=== PATIENT | female | born 1995 | race Asian ===

== ENCOUNTER 2025-11-07 05:44 | Inpatient (IN) ==
--- NOTE | 2025-10-24 16:07 | Anesthesiology Consultation ---
Date of Service October 24, 2025 Assessment & Plan (1) Encounter for pre-operative examination: Chart Review Chart Review: entry level chemist initiated -Infectious Disease screening: Per PAT nursing assessment on 10/24/25. No known infectious disease contacts in past 10 days or current infectious disease symptoms. No recent travel outside the country. History Surgery Operation Date: 11/07/25 07:30 Proposed Procedures p Section in LD (Delivery of baby through abdominal inision) - Sommer Alfaro MD, FACOG Height/Weight Height: 5 ft 2 in Weight: 62.596 kg Allergies Allergy/AdvReac Type Severity Reaction Status Date / Time No Known Drug Allergies Allergy Unknown Unknown Verified 10/24/25 15:40 Medications Home Medications Medication Instructions Recorded Confirmed Last Taken breast pump #1 ea 06/26/25 10/22/25 Unknown L.acidophilus,rhamnosus-B.breve-S.thermophilus 1 tab PO DAILY 10/24/25 10/24/25 Unknown 3 billion cell chew tab vit with calcium-iron 1 tab PO DAILY 10/24/25 10/24/25 Unknown fum-folic acid 60 mg-0.8 mg tablet Past Medical History Medical History (Updated 10/24/25 @ 16:06 by Joanne Storey PA-C) Breech presentation Eustachian tube dysfunction chronic left side Failed external cephalic version Hypotension states diastolic 50's systolically usually in upper 100-110s Nausea and vomiting during states mostly nausea Varicella vaccination Past Family History Family History Denies family history of Ovarian cancer Breast cancer Colorectal cancer Past Surgical History Surgical History History of insertion of intraocular lens into anterior chamber (2017) b/l History of wisdom tooth extraction (2020) Social History Smoking Status: Never smoker Do You Dip or Chew Tobacco: No Hx Alcohol Use: No Hx Substance Use: No substance use type: does not use Lab Results Anesthesia Preop Results Results Anesthesia Widget: WBC 6.29 K/ul (4.8-10.8) 10/23/25 Hgb 13.0 g/dL (12.0-16.0) 10/23/25 Hct 37.2 % (37.0-47.0) 10/23/25 Plt 144 K/uL (130-400) 10/23/25 Blood Type AB Positive 10/23/25 Antibody Screen NEGATIVE 10/23/25
--- NOTE | 2025-11-05 15:33 | History & Physical Report ---
Date of Service November 05, 2025 Assessment & Plan (1) 39 weeks gestation of : (2) Breech presentation: Plan Admit on day of surgery for planned c/s due to breech presentation. Failed ecv. Procedure reviewed in detail and consent reviewed and signed. Preop and postop instructions and course reviewed. History of Present Illness Chief Complaint: planned c/s Primary Care Provider: Ute Grover MD 29yo at 39+wks on day of admission for planned c/s for persistent breech presentation. No rom, no vb. +FM. No ctx. PNC c/b 1. breech, failed ecv 2. needs MMR pp PNL rhpos, ri, gbs neg OBH: g1 GYNH: no stds. Allergies Allergy/AdvReac Type Severity Reaction Status Date / Time No Known Drug Allergies Allergy Unknown Unknown Verified 10/30/25 10:27 Home Medications Medication Instructions Recorded Confirmed Type breast pump #1 ea 06/26/25 10/30/25 Rx L.acidophilus,rhamnosus-B.breve-S.thermophilus 1 tab PO DAILY 10/24/25 10/30/25 History 3 billion cell chew tab vit with calcium-iron 1 tab PO DAILY 10/24/25 10/30/25 History fum-folic acid 60 mg-0.8 mg tablet Patient History Medical History (Updated 11/05/25 @ 15:32 by Sommer Alfaro MD, FACOG) Eustachian tube dysfunction chronic left side Hypotension states diastolic 50's systolically usually in upper 100-110s Nausea and vomiting during states mostly nausea Breech presentation Failed external cephalic version Varicella vaccination Surgical History History of wisdom tooth extraction (2020) History of insertion of intraocular lens into anterior chamber (2017) b/l Family History Denies family history of Ovarian cancer Breast cancer Colorectal cancer Social History Smoking Status: Never smoker Second Hand Exposure: No; Do You Dip or Chew Tobacco: No; Hx Alcohol Use: No Hx Substance Use: No Preferred Language: Serbian Communication Ability: Effective Machinist Mate Required: No Beliefs That Will Affect Care: Jehovah'S Witness Jehovah'S Witness Beliefs: quaker marital status: marital status details: Eric Soriano (39) [phone] Current Living Situation: Spouse Current Living Situation Comment: lives with spouse, no pets current occupational status: employed 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
[2025-11-07] MEDS: LACTATED RINGER'S 1,000 ML IV SCH (06:25)
[2025-11-07] MEDS ORDERED: LACTATED RINGER'S 1,000 ML IV SCH ×2 (06:45→08:54)
[2025-11-07] MEDS: ACETAMINOPHEN 500 MG TAB PO SCH (07:11)
[2025-11-07] MEDS ORDERED: ONDANSETRON INJ 2 MG/ML 2 ML VIAL IV PRN (07:20)
[2025-11-07] MEDS ORDERED: NALBUPHINE HCL INJ 10 MG/ML AMP IV PRN (07:20)
[2025-11-07] MEDS ORDERED: PROMETHAZINE 6.25 MG/50.25 ML BAG IV PRN (07:20)
[2025-11-07] MEDS ORDERED: MoRPHine SULFATE PF 1 MG/ML 10 ML AMP/VIAL INT SPINAL ONE (07:20)
[2025-11-07] MEDS ORDERED: MEPERIDINE HCL 25 MG/ML CARP/VIAL IV PRN (07:20)
[2025-11-07] MEDS ORDERED: HYDROmorphone INJ 0.5 MG/0.5 ML SYR IV PRN (07:20)
[2025-11-07] MEDS ORDERED: NALOXONE HCL 1 MG in SODIUM CHLORIDE 0.9% 1,000 ML IV PRN (07:20)
[2025-11-07] MEDS ORDERED: NALOXONE HCL 0.4 MG/1 ML VIAL/CARP IV PRN (07:20)
[2025-11-07] MEDS ORDERED: diphenhydrAMINE 50 MG/ML VIAL IV PRN (07:20)
[2025-11-07] MEDS ORDERED: MoRPHine SULFATE 2 MG/ML CARP IV PRN (07:20)
[2025-11-07] MEDS ORDERED: NALOXONE HCL 0.08 MG in SYRINGE 1.8 ML IV PRN (07:20)
[2025-11-07] MEDS ORDERED: ONDANSETRON INJ 2 MG/ML 2 ML VIAL ONE (07:25)
[2025-11-07] MEDS ORDERED: PHENYLEPHRINE HCL 25 MG/250 ML NSS IV ONE (07:25)
[2025-11-07] MEDS ORDERED: OXYTOCIN 10 UNITS/ML VIAL ONE (07:25)
[2025-11-07] MEDS ORDERED: MoRPHine SULFATE PF 1 MG/ML 10 ML AMP/VIAL ONE (07:27)
[2025-11-07] MEDS: CITRIC ACID/SODIUM CITRATE 15 ML UDC PO SCH (07:29)
[2025-11-07] MEDS ORDERED: SODIUM CHLORIDE 0.9% 1,000 ML IV SCH (07:30)
[2025-11-07] MEDS ORDERED: NO NARCOTICS OR SEDATIVES SCH (07:30)
[2025-11-07] MEDS ORDERED: DC INTRASPINAL MORPHINE SCH (07:30)
--- NOTE | 2025-11-07 07:30 | History & Physical Bridge Note ---
Date of Service November 07, 2025 History & Physical Bridge Note I have examined the patient, reviewed the History & Physical and in the interval since the performance of the History & Physical I have noted the following changes of clinical significance: no changes noted
[2025-11-07 07:33] LABS: Hematocrit (blood only) 32.9 % (37.0-47.0); Hemoglobin 11.5 g/dL (12.0-16.0); Immature Granulocytes # (auto) 0.02 K/uL (0.01-0.20); Immature Granulocytes % (auto) 0.3 %; Mean Corpuscular Hemoglobin 33.9 pg (25.0-34.0); Mean Corpuscular Volume 97.1 fL (80.0-100.0); Platelet Count 117 K/uL (130-400); RDW Standard Deviation 42.4 fL (36.4-46.3); Red Blood Count 3.39 M/uL (4.20-5.40); White Blood Count 5.74 K/ul (4.8-10.8)
--- NOTE | 2025-11-07 08:32 | Operative Report ---
PG Post Operative Report Pre & Post Diagnosis Operation Date: 11/07/25 07:30 <No data on this case meets the specified criteria> 1. 39 week iup 2. Breech presentation 3. Failed ECV I identified the patient and participated in the time-out.: Yes Procedure Operation Date: 11/07/25 07:30 <No data on this case meets the specified criteria> Primary Low Transverse Section Surgeon Sommer Alfaro MD, FACOG Scleroscope Tester Estela Estimated Blood Loss 906 Findings Consistent with Post-Op Diagnosis (viable female apgars 8,9. normal uterus tubes and ovaries bilaterally) Fluids 1000cc Specimens cord blood Drains robles Anesthesia Type Spinal Complications none Disposition Accompanied Patient To Recovery: No Disposition: L&D Indications 29yo at 39wks with breech presentation for planned c/s. Description of Procedure The patient was taken to the operating room and identified. After adequate anesthesia was obtained, she was placed in the supine position with a leftward tilt on the operating table and prepped and draped in the usual sterile fashion. A robles catheter had already been placed. The knife was used to create a Pfannensteil skin incision that was carried down to the underlying layer of fascia. The fascia was nicked in the midline and this opening was extended laterally using Clay scissors. Ene clamps were placed on the superior and inferior aspect of the fascial incision tenting it upward and the underlying rectus muscles were dissected off the overlying fascia both sharply and bluntly using Clay scissors. The rectus muscles were bluntly in the midline. The peritoneal cavity was bluntly entered into. This opening was stretched. The bladder blade was placed. The vesicouterine peritoneum was elevated and opened up into and the bladder flap was created digitally and bladder blade was replaced. The knife was used to create a hysterotomy and this opening was st retched. The operators hand was placed through the hysterotomy and the bladder blade was removed. The buttocks was elevated and with fundal pressure the buttocks and body was delivered to the level of the shoulders. The arms were swept across the anterior midline and the head was flexed and delivered. The cord was clamped and cut and the 's mouth and nares were bulb suction. The was handed off to the awaiting pediatricians. Cord blood was obtained. The placenta was manually expressed. The uterus was exteriorized and cleared of all clots and debris. Dilute IV Pitocin was begun. The uterine tone was improving. The hysterotomy was closed in a running interlocking fashion using 0 Vicryl followed by a second imbricating layer of 0 Vicryl. Small bleeding sites were noted on hysterotomy and stitched with single figure of eight sutures of 0 vicryl for excellent hemostasis. The hysterotomy was hemostatic. The pelvis was suctioned. The uterus was returned to the abdomen. The gutters were cleared of all clots and debris. The hysterotomy was reinspected and noted to be hemostatic. The fascia was then closed in running fashion using 0 Vicryl. The subcutaneous fat was copiously irrigated and reapproximated using 2-0 chromic. The skin was closed in a subcuticular fashion using 4-0 monocryl. At this point the procedure was terminated. The patient was transferred to the recovery room in stable condition. All sponge, lap and needle counts are correct x2. I attest to the content of the Intraoperative Record and any orders documented therein. Any exceptions are noted below. OB Procedure Charges [id number]
[2025-11-07] MEDS ORDERED: KETOROLAC 30 MG/ML VIAL ONE (08:52)
[2025-11-07] MEDS ORDERED: MAGNESIUM HYDROXIDE SUSP 30 ML UDC PO PRN (08:54)
[2025-11-07] MEDS ORDERED: BENZOCAINE 20% SPRY 85 APPLN/85 GM CAN EXT PRN (08:54)
[2025-11-07] MEDS ORDERED: CALCIUM CARBONATE 500 MG CHEWABLE TAB PO PRN (08:54)
[2025-11-07] MEDS ORDERED: HYDROCORTISONE ACETATE 25 MG SUPP PR PRN (08:54)
[2025-11-07] MEDS ORDERED: SENNA 8.6 MG TAB PO PRN (08:54)
[2025-11-07] MEDS: OXYTOCIN 20 UNITS/LR 1,002 ML IV SCH (09:02)
[2025-11-07] MEDS: OXYTOCIN 20 UNITS/1002ML LR IV ONE (09:03)
[2025-11-07] MEDS: DIPHTHER/TETAN/PERTUS Vaccine (Tdap, Adol/Adult) 0.5mL IM ONE (09:03)
[2025-11-07] MEDS: KETOROLAC 30 MG/ML VIAL IV SCH (09:04)
--- NOTE | 2025-11-07 10:10 | Anesthesiology Progress Note ---
Date of Service November 07, 2025 Anesthesia Post Procedure Vital Signs Vital Signs: Temp Pulse Resp BP Pulse Ox O2 Del Method 11/07/25 10:06 60 97 11/07/25 10:05 57 L 95/50 L 11/07/25 10:01 59 L 98 11/07/25 09:56 58 L 97 11/07/25 09:51 97 11/07/25 09:51 62 11/07/25 09:51 58 L 107/60 11/07/25 09:48 66 94 11/07/25 09:46 63 97 11/07/25 09:41 63 99 11/07/25 09:40 36.3 C L 61 12 92/54 L 97 11/07/25 09:40 64 92/54 L 11/07/25 09:36 60 98 11/07/25 09:31 68 98 11/07/25 09:30 36.4 C L 63 16 93/52 L 97 11/07/25 09:30 63 93/52 L 11/07/25 09:26 72 98 11/07/25 09:21 68 98 11/07/25 09:20 36.4 C L 62 16 99/59 L 97 11/07/25 09:20 62 99/59 L 11/07/25 09:18 70 93 11/07/25 09:16 63 98 11/07/25 09:11 66 98 11/07/25 09:10 36.3 C L 66 18 103/58 L 97 11/07/25 09:10 65 103/58 L 11/07/25 09:06 62 97 11/07/25 09:01 73 96 11/07/25 09:00 36.3 C L 75 16 94/57 L 98 11/07/25 09:00 57 L 94/57 L 11/07/25 08:56 62 98 11/07/25 08:50 35.8 C L 58 L 16 96/56 L 11/07/25 08:50 58 L 96/56 L 11/07/25 08:45 63 93/52 L 11/07/25 08:40 35.6 C L 59 L 16 101/50 L 11/07/25 08:35 35.6 C L 59 L 16 101/50 L 11/07/25 07:32 18 11/07/25 07:32 18 11/07/25 07:17 36.8 C 18 11/07/25 07:17 Room Air 11/07/25 07:10 57 L 123/74 11/07/25 06:19 36.8 C 55 L 18 112/72 Pain Intensity Bilateral Abdomen: Pain Intensity: 2 Transfer of Care Handoff Completed per policy Notes Mental Status: alert / awake / arousable Nausea / Vomiting: adequately controlled Pain: adequately controlled Airway Patency, RR, SpO2: stable & adequate BP & HR: stable & adequate Hydration State: stable & adequate Neuraxial Anesthesia: was administered and sensory block is resolving Anesthetic Complications: no major complications apparent and Pt Satisfied with anesthetic care
[2025-11-07] MEDS: LACTATED RINGER'S 500 ML IV PRN (10:17)
[2025-11-07] MEDS: SIMETHICONE 80 MG CHEW PO SCH (15:04)
[2025-11-07] MEDS: ACETAMINOPHEN 325 MG TAB PO SCH (15:04)
[2025-11-07] MEDS: DOCUSATE SODIUM 100 MG CAP PO SCH (20:33)
[2025-11-08] MEDS ORDERED: ZOLPIDEM TARTRATE 5 MG TAB PO PRN (01:20)
[2025-11-08] MEDS ORDERED: diphenhydrAMINE 50 MG/ML VIAL IV PRN (01:20)
[2025-11-08] MEDS ORDERED: diphenhydrAMINE Capsule 25 MG CAP PO PRN (01:20)
[2025-11-08] MEDS ORDERED: PROMETHAZINE 12.5 MG/50.5 ML BAG IV PRN (01:20)
[2025-11-08] MEDS ORDERED: ONDANSETRON INJ 2 MG/ML 2 ML VIAL IV PRN (01:20)
[2025-11-08] MEDS ORDERED: HYDROmorphone INJ 0.5 MG/0.5 ML SYR IV PRN (01:20)
--- NOTE | 2025-11-08 06:50 | Obstetrical Progress Note ---
Date of Service November 08, 2025 Assessment & Plan Plan 29 yo post- day 1 s/p . Fells well today. Vital signs stable Continue post- care Encourage ambulation and Pain controlled with ibuprofen Hgb stable Discharge home tomorrow, follow up with Dr. Alfaro in 6 weeks. Admission and Anticipated Discharge Date Admission Date: November 07, 2025 Subjective 29 yo post- day 1 s/p . Ambulation: ambulating normally Voiding: no voiding problems Passing Gas:: Yes Diet Tolerance:: regular diet Lochia:: Small Feeding Type:: bottle feeding Current Pain Level:Slight pain. Resting comfortably this AM in NAD. Denies DAWN, CP, SOB, N/V/D, LE pain/swelling. Review of Systems Review of Systems: As per HPI. Physical Exam Physical Exam: General: patient resting comfortably, NAD, non-toxic in appearance, AA&O x 4, answers questions appropriately. Skin: warm, dry, intact HEENT: NC/AT, anicteric sclera, conjunctiva without injection, moist mucus membranes. Heart: +S1/S2, regular, no m/r/g Lungs: equal air entry bilaterally, no rales/rhonchi/wheezes Abd: +BS, soft, NT/ND, uterine fundus firm at umbilicus. Ext: warm, no clubbing/cyanosis or edema, Zoya's neg. Results & Data Vital Signs (Past 12 Hours) Vital Signs Temp Pulse Resp BP Pulse Ox O2 Del Method 11/08/25 03:15 36.6 C 67 18 106/68 98 Room Air 11/08/25 02:00 18 98 11/08/25 01:00 18 98 11/08/25 00:06 18 96 11/07/25 23:55 36.4 C L 60 18 108/68 96 Room Air 11/07/25 23:00 18 96 11/07/25 22:00 18 98 11/07/25 21:00 18 97 11/07/25 20:00 18 98 11/07/25 19:40 18 98 11/07/25 19:40 36.5 C 62 18 104/67 98 Room Air
[2025-11-08 06:53] LABS: Hematocrit (blood only) 26.2 % (37.0-47.0); Hemoglobin 9.4 g/dL (12.0-16.0); Immature Granulocytes # (auto) 0.04 K/uL (0.01-0.20); Immature Granulocytes % (auto) 0.5 %; Mean Corpuscular Hemoglobin 34.8 pg (25.0-34.0); Mean Corpuscular Volume 97.0 fL (80.0-100.0); Platelet Count 102 K/uL (130-400); RDW Standard Deviation 42.2 fL (36.4-46.3); Red Blood Count 2.70 M/uL (4.20-5.40); White Blood Count 7.91 K/ul (4.8-10.8)
[2025-11-08] MEDS: PRENATAL VITAMIN 1 TAB PO SCH (07:26)
[2025-11-08] MEDS: FERROUS SULFATE 325 MG TAB PO SCH (07:26)
[2025-11-08] MEDS ORDERED: KETOROLAC 30 MG/ML VIAL IV PRN (08:38)
[2025-11-08] MEDS: IBUPROFEN 600 MG TAB PO SCH (08:45)
--- NOTE | 2025-11-08 08:54 | Obstetrical Progress Note ---
Date of Service November 08, 2025 Assessment & Plan (1) care following delivery: (2) Failed external cephalic version: (3) Breech presentation: Plan 29 yo post- day 1 s/p . Fells well today. Vital signs stable Continue post- care Encourage ambulation and Pain controlled with ibuprofen Hgb stable Discharge home tomorrow, follow up with Dr. Alfaro in 6 weeks. Admission and Anticipated Discharge Date Admission Date: November 07, 2025 Supervising Physician Co-Signing Physician Notes Resident Physician Supervision Note: I interviewed and examined the patient. Discussed with Dr. Alvarado and agree with findings and plan as documented in the note. Any exceptions or clarifications are listed here: pt notes some pain issues, has not tried oxycodone, taking motrin and tyelenol. eating, voiding, +flatus. no bleeding concerns. breast feeding. abd soft ff 2 down nt, incision c/d/i. ext nt calves. pod #1 s/p c/s. rec she take some oxycodone to help with pain control so she can move more/shower. cont current care otherwise. rh pos, ri, . hgb noted. recheck in am. Documented By: Sommer Alfaro MD, FACOG Subjective 29 yo post- day 1 s/p Ambulation: ambulating normally Voiding: no voiding problems Passing Gas:: Yes Diet Tolerance:: regular diet Lochia:: Small Feeding Type:: bottle feeding Current Pain Level: Resting comfortably this AM in NAD. Denies DAWN, CP, SOB, N/V/D, LE pain/swelling. Review of Systems Review of Systems: As per HPI. Physical Exam Physical Exam: General: patient resting comfortably, NAD, non-toxic in appearance, AA&O x 4, answers questions appropriately. Skin: warm, dry, intact HEENT: NC/AT, anicteric sclera, conjunctiva without injection, moist mucus membranes. Heart: +S1/S2, regular, no m/r/g Lungs: equal air entry bilaterally, no rales/rhonchi/wheezes Abd: +BS, soft, NT/ND, uterine fundus firm at umbilicus. Ext: warm, no clubbing/cyanosis or edema, Zoya's neg. Results & Data Vital Signs (Past 12 Hours) Vital Signs Temp Pulse Resp BP Pulse Ox O2 Del Method 11/08/25 07:20 36.4 C L 56 L 16 103/56 L 97 Room Air 11/08/25 03:15 36.6 C 67 18 106/68 98 Room Air 11/08/25 02:00 18 98 11/08/25 01:00 18 98 11/08/25 00:06 18 96 11/07/25 23:55 36.4 C L 60 18 108/68 96 Room Air 11/07/25 23:00 18 96 11/07/25 22:00 18 98 11/07/25 21:00 18 97 Resident Activity Tracking Resident Involvement: Resident Care Provided Care Provided: Adult Hospital Medicine
[2025-11-08 23:05] VITALS: RESP 16; O2SAT 96
[2025-11-09 06:29] LABS: Hematocrit (blood only) 24.9 % (37.0-47.0); Hemoglobin 8.8 g/dL (12.0-16.0)
[2025-11-09 07:50] VITALS: BP 123/79; PULSE 61; TEMP 97.9
--- NOTE | 2025-11-09 09:18 | Obstetrical Progress Note ---
Date of Service November 09, 2025 Assessment & Plan (1) care following delivery: (2) Failed external cephalic version: (3) Breech presentation: Plan 29 yo post- day 2 s/p . VS wnl Hgb stable (9.4>>8.8), plan for PO iron with PNV Continue ibuprofen/tylenol for pain control; declines oxycodone rx Discharge home, PPV in 6 weeks Admission and Anticipated Discharge Date Admission Date: November 07, 2025 Subjective Patient doing well, meeting milestones. Pain controlled with ibuprofen/tylenol. Desires DC home today. Review of Systems Constitutional: as per Subjective / HPI Physical Exam Constitutional: WD/WN, vitals as above no acute distress Respiratory: normal respiratory effort Gastrointestinal (Abdomen): Inspection/Auscultation: abdomen normal to inspection; abdomen not distended Percussion/Palpation: abdomen soft Musculoskeletal: Extremities: extremities normal to inspection Skin: no rashes, warm and dry Psychiatric: Orientation: alert and oriented x 3 Genitourinary: OB Exam Abdomen: + fundal height Fundus: + firm (at umbilicus); not tender Results & Data Vital Signs (Past 12 Hours) Vital Signs Temp Pulse Resp BP Pulse Ox O2 Del Method 11/09/25 07:30 36.6 C 61 16 123/79 96 Room Air 11/08/25 23:04 36.8 C 83 16 104/72 96 Room Air Laboratory Results Laboratory Results - last 24 hr 11/09/25 06:00 Hgb 8.8 L Hct 24.9 L Coding Level of Care Code None Diagnoses care following delivery Z39.2 Failed external cephalic version O32.9XX0 Breech presentation O32.1XX0
[2025-11-09] MEDS: IBUPROFEN 600 MG TAB PO PRN (11:50)
[2025-11-09] MEDS ORDERED: ACETAMINOPHEN 325 MG TAB PO PRN (14:38)
--- NOTE | 2025-11-11 13:56 | Discharge Summary ---
Date of Service November 11, 2025 Admission HPI Per Admitting Provider 29yo at 39+wks on day of admission for planned c/s for persistent breech presentation. No rom, no vb. +FM. No ctx. PNC c/b 1. breech, failed ecv 2. needs MMR pp PNL rhpos, ri, gbs neg OBH: g1 GYNH: no stds. Discharge Data Consultations 11/07/25 05:44 Consult Anesthesiology Stat Procedures Performed Operation Date: 11/07/25 07:30 Actual Procedures p Primary Low Transverse Section (Delivery of Baby Through Abdominal Incision) with the of a live female child at 0754. (Bilateral) - Sommer Alfaro MD, [facility] [place] Hospital Course (1) care following delivery: The patient underwent the above stated procedure without incident and her postoperative course and recovery was uncomplicated. On her postoperative day #2 she was tolerating a regular diet, voiding spontaneously, ambulating without problem and was using oral meds for adequate pain control. Her postoperative hemoglobin was 8.8. She was given written and verbal discharge instructions and told to followup in office at 6wks. She was given appropriate pain medicine prescriptions. Coding Level of Care Code None Diagnoses care following delivery Z39.2
== END 2025-11-09 12:10 | disposition home or self-care (01) | DRG 788 ==
LOC: 4S1 → OBSVTOIN 05:44 → EDSTATUS 07:30 → 4E2 11:50
DX: O32.1XX0 Maternal care for breech presentation, not applicable or unspecified; Z37.0 Single live birth; Z3A.39 39 weeks gestation of pregnancy